=== PATIENT | male | born 1940 | race Caucasian/White ===

== ENCOUNTER → 2018-07-17 | Outpatient (REF) ==
[~2018-07-17] MED LIST: ALLEGRA-D 12 HO1 TER PO; CHLOR-A-TAB4 MG PO; FOLIC ACID 40400 MCG PO; IRON CHELATED325 MG PO; MOTRIN800 MG PO; MUCINEX DM 60 M1 TER PO; OMEGA 31000 MG PO; OMEPRAZOLE40 MG PO; PRILOSEC; RANITIDINE15 MG/M1 PO; RANITIDINE150 MG PO; VICODIN 5/5001 UDTAB PO; VITAMIN C BUFF500 MG PO; VITAMIN C250 M1 PO
[2018-07-17 16:45] LABS: THYROID STIMULATING HORMONE 2.39 uIU/mL (0.465-4.680)
== END ==
LOC: ZLAB.WCH 16:00
PROVIDERS: Internal Medicine
DX: Z01.89 Encounter for other specified special examinations (principal)

== ENCOUNTER 2018-08-06 06:49 | Day surgery (SDC) | payer MEDICARE, OTHER ==
[~2018-08-06] VITALS: Ht 170.2 cm; Wt 65.0 kg
[~2018-08-06 06:49] MED LIST changes: +PROTONIX 40MG T40 MG PO; +RAPAFLO8 MG PO; +SYNTHROID0.05 MG/TA PO; +XYZAL5 MG PO
[2018-08-06] MEDS ORDERED: CALCIUM-MAGNES1 EAC1 PO (07:20)
[2018-08-06] MEDS ORDERED: B-121000 MCG PO (07:20)
[2018-08-06 07:57] VITALS: BP 133/66; PULSE 70; TEMP 98.5
[2018-08-06 11:00] VITALS: BP 127/84; PULSE 70; TEMP 97.7
[2018-08-06] MEDS ORDERED: ROXICODONE 55 MG/TAB PO (11:14)
[2018-08-06 11:15] VITALS: BP 126/89; PULSE 67
[2018-08-06 11:30] VITALS: BP 133/68; PULSE 76
[2018-08-06 11:45] VITALS: BP 126/67; PULSE 60
[2018-08-06 12:00] VITALS: BP 121/71; PULSE 64
== END 2018-08-06 12:30 | disposition home or self-care (01) ==
LOC: SDCO 06:49
DX: K40.20 Bilateral inguinal hernia, without obstruction or gangrene, not specified as recurrent (principal); E03.9 Hypothyroidism, unspecified; E78.5 Hyperlipidemia, unspecified; K21.9 Gastro-esophageal reflux disease without esophagitis; M19.90 Unspecified osteoarthritis, unspecified site; G47.00 Insomnia, unspecified; N40.0 Benign prostatic hyperplasia without lower urinary tract symptoms; Z83.3 Family history of diabetes mellitus; Z88.6 Allergy status to analgesic agent; Z96.651 Presence of right artificial knee joint; Z96.611 Presence of right artificial shoulder joint
CPT/HCPCS: C1781; J0690; J1100; J1885; J2405; J2704; J2710; J3010; J7120

== ENCOUNTER → 2018-09-16 | Outpatient (REF) ==
[~2018-09-16] MED LIST changes: +B-121000 MCG PO; +CALCIUM-MAGNES1 EAC1 PO; +ROXICODONE 55 MG/TAB PO
[2018-09-16 16:42] LABS: PSA-TOTAL 3.54 ng/mL (0-4)
[2018-09-16 17:16] LABS: THYROID STIMULATING HORMONE 3.1 uIU/mL (0.465-4.680)
== END ==
LOC: ZLAB.WCH 15:57
PROVIDERS: Internal Medicine
DX: Z01.89 Encounter for other specified special examinations (principal)
CPT/HCPCS: G0103

== ENCOUNTER → 2018-09-25 | Outpatient (REF) ==
[~2018-09-25] MED LIST changes: +LEVAQUIN 5500 MG/TA1 PO
== END ==
LOC: ZLAB.WCH 18:16
DX: Z01.89 Encounter for other specified special examinations (principal)

== ENCOUNTER → 2018-09-25 | Outpatient (REF) | LOC: ZLAB.WCH 18:34 | DX: Z01.89 Encounter for other specified special examinations (principal) ==

== ENCOUNTER → 2018-09-25 | Outpatient (REF) | LOC: ZLAB.WCH 18:26 | DX: Z01.89 Encounter for other specified special examinations (principal) ==

== ENCOUNTER 2021-08-08 06:50 | Day surgery (SDC) | payer MEDICARE, OTHER ==
[2021-08-08] VITALS (11 sets, daily range): BP systolic 102–146; BP diastolic 57–85; PULSE 48–93; TEMP 97.6–97.8
[~2021-08-08] VITALS: Ht 172.7 cm; Wt 69.8 kg
[2021-08-08 08:03] LABS: BASO # 0.1 K/mm3 (0.0-0.2); BASO % 0.8 % (0.0-2.0); EOS # 0.3 K/mm3 (0.0-0.7); EOS % 4.5 % (0-4.0); GRAN # 3.7 K/mm3 (1.4-6.5); GRAN % 52.3 % (42.2-75.2); HEMATOCRIT 44.9 % (42.0-52.0); HEMOGLOBIN 14.8 g/dl (13.5-18.0); LYMPH # 2.1 K/mm3 (1.2-3.4); LYMPH % 30.2 % (20.0-51.0); MEAN CELL VOLUME 99 fl (80.0-100.0); MEAN CORPUSCULAR HEMOGLOBIN 33 pg (27.0-31.0); MEAN CORPUSCULAR HGB CONC 33 g/dl (33.0-37.0); MEAN PLATELET VOLUME 10.8 fl (7.4-10.4); MONO # 0.8 K/mm3 (0.1-0.6); MONO % 11.8 % (1.7-9.3); PLATELET COUNT 181 K/mm3 (130-400); RED BLOOD COUNT 4.55 M/mm3 (4.20-5.60); REDCELL DISTRIBUTION WIDTH-CV 13.1 % (11.5-14.5)
[2021-08-08 08:14] LABS: INR 1.1 (0.8-3.0); PROTHROMBIN TIME 12.2 SECONDS (9.7-12.8)
[2021-08-08 08:16] LABS: CALCIUM 9.5 mg/dL (8.4-10.2); CREATININE, serum 1.05 mg/dL (0.72-1.25)
[2021-08-08] MEDS ORDERED: QUESTRAN4 GM/9 GM PO (08:36)
[2021-08-08] MEDS ORDERED: MASON NATURAL2000 IU PO (08:38)
--- NOTE | 2021-08-08 09:10 | NUR ---
Pt to procedure,report to Allyssa Love.
--- NOTE | 2021-08-08 09:39 | NUR ---
SEE MERGE FOR ALL MEDICATION ADMINISTATION TIMES, INTRA AND POST SEDATION ASSESSMENTS
[2021-08-08] MEDS ORDERED: UCERIS (11:46)
[2021-08-08] MEDS ORDERED: ENTOCORT EC3 MG PO (15:23)
--- NOTE | 2021-08-08 17:53 | NUR ---
Patient has done well all day. Only reported mild pain when first on the floor after pacemaker placement. Tylenol did relieve this pain. Patient is A&Ox4 and independent. has been at the bedside for any assistance needed.
[2021-08-09 04:03] VITALS: BP 111/80; PULSE 63; TEMP 97.3
--- NOTE | 2021-08-09 05:40 | NUR ---
PT HAD UNEVENTFUL NIGHT. HAD DIFFICULTY SLEEPING. DENIES PAIN, DIZZINESS,SOA. BOTH INCISION SITES C/D/I, NO INFLAMMATION NOTED, ARM REMAINED IN SLING ALL NIGHT. ICE PACK INTERMITTENTLY USED. PT CAPILLARY WNL, PULSES WNL. MEDICATIONS ADMINISTERED ORDERED. THIS NURSE WILL RELAY TO DAY SHIFT THAT PT'S IS QUESTIONING [employer] ADMINISTRATION PURPOSES FOR PT. PACEMAKER PW PROVIDED TO PT'S LAST NIGHT. ALL NEEDS MET THIS NIGHT.
--- NOTE | 2021-08-09 06:17 | NUR ---
PTS PACEMAKER INTERROGATION COMPLETE. FAX RECIEVED. PW IN PT'S CHART.
[2021-08-09 06:46] LABS: BASO # 0.1 K/mm3 (0.0-0.2); BASO % 0.6 % (0.0-2.0); EOS # 0.2 K/mm3 (0.0-0.7); EOS % 2.2 % (0-4.0); GRAN # 6.3 K/mm3 (1.4-6.5); GRAN % 66.6 % (42.2-75.2); HEMATOCRIT 45.7 % (42.0-52.0); HEMOGLOBIN 15.4 g/dl (13.5-18.0); LYMPH % 21.3 % (20.0-51.0); MEAN CELL VOLUME 96 fl (80.0-100.0); MEAN CORPUSCULAR HEMOGLOBIN 33 pg (27.0-31.0); MEAN CORPUSCULAR HGB CONC 34 g/dl (33.0-37.0); MEAN PLATELET VOLUME 11.3 fl (7.4-10.4); MONO # 0.8 K/mm3 (0.1-0.6); MONO % 8.9 % (1.7-9.3); PLATELET COUNT 176 K/mm3 (130-400); RED BLOOD COUNT 4.74 M/mm3 (4.20-5.60); REDCELL DISTRIBUTION WIDTH-CV 12.8 % (11.5-14.5)
[2021-08-09 07:10] LABS: CALCIUM 9.1 mg/dL (8.4-10.2); CREATININE, serum 0.87 mg/dL (0.72-1.25); POTASSIUM 3.9 mmol/L (3.5-4.5)
[2021-08-09 08:27] VITALS: BP 108/58; PULSE 59; TEMP 98
--- NOTE | 2021-08-09 09:09 | NUR ---
GAMALIEL met with the patient and his , Deborah (ph#[phone]), to discuss discharge plan. The patient lives in [place] with his . He reports independence with ADLs and does not have any DME. The patient's PCP is Dr. Jaden Richards and he receives his medications from [facility] and [facility]. The patient's DPOA-HC is in EMR and it designates Deborah and his daughter, Caron Bales. The patient plans to return home with his upon discharge. No additional needs at this time. *Discharge plan: home with *
--- NOTE | 2021-08-09 10:26 | NUR ---
Patient sitting in recliner upon entering the room. Does not have any complaints at this time. Denies any pain.
[2021-08-09 11:08] VITALS: BP 124/53; PULSE 60; TEMP 97.6
[2021-08-09] MEDS ORDERED: CEPHALEXIN500 M1 PO (11:11)
--- NOTE | 2021-08-09 12:24 | NUR ---
Patient discharging. Will ambulate out with the assistance of this RN. Patient was given 1400 dose of cephalexin and instructed to only take 1 capsule tonight, then take 3 tomorrow per directions. Patient doing very well today. is with him.
--- NOTE | 2021-08-09 13:19 | NUR ---
First visit from the getter operator. No needs right now.
== END 2021-08-09 12:30 | disposition home or self-care (01) ==
LOC: COL.CAR 06:50 → MEDICAL 12:01 → COL.CAR 08-09 12:30
PROVIDERS: Internal Medicine Cardiovascular Disease
DX: Z45.010 Encounter for checking and testing of cardiac pacemaker pulse generator [battery] (principal); I49.5 Sick sinus syndrome; R42 Dizziness and giddiness; Z95.828 Presence of other vascular implants and grafts
CPT/HCPCS: OP; C1785; C1894; C1898; J0690; J2250; J3010; J7030; Q9967